=== PATIENT | male | born 1980 | race Caucasian/White ===

== ENCOUNTER 2016-08-13 17:00 | Emergency (ER) | payer SELFPAY ==
[~2016-08-13] VITALS: Ht 162.6 cm; Wt 109.5 kg
[2016-08-13 17:08] VITALS: Ht 162.6 cm; Wt 109.5 kg
[2016-08-13] MEDS ORDERED: BENZOCAINE 10% 7 GM GEL MM ONE (18:30)
[2016-08-13] MEDS ORDERED: LIDOCAINE 1%/EPI 30 ML INJ INJ STA (18:57)
[2016-08-13] MEDS ORDERED: LIDOCAINE 2%/EPI MPF (SDV) 20 ML VIAL INJ ONE (19:00)
[2016-08-13] MEDS ORDERED: KET2CR15 TOP (19:52)
[2016-08-13] MEDS ORDERED: CEPH-443 PO (19:52)
[2016-08-13] MEDS ORDERED: MUPI22OI2 TOP (19:53)
--- NOTE | 2016-08-14 19:23 | ERD ---
ER Documentation Chief Complaint Date/Time DATE: 08/14/16 TIME: 19:12 Chief Complaint FORSKIN STCUK ON BOXERS EDILIA This patient is a 36-year-old male with no significant medical history presenting to the emergency department with complaints of his foreskin stuck in the zipper of his shorts. This occurred approximately 1 hour ago. He states he was urinating and then zipped up his pants too quickly accidentally lodging the foreskin of his penis and of his upper. The patient reports moderate pain associated. He denies other injuries or symptoms currently. ROS All systems reviewed and are negative except as per history of present illness. Medications Home Meds Active Scripts Mupirocin* (Bactroban*) 2% -22 Gram Oint...g., 1 APPLIC TOP BID for 5 Days, #1 TUB SITE OF APPLICATION: Prov:ROSALIE WHALEN PA-C 08/13/16 Cephalexin* (Keflex*) 500 Mg Capsule, 500 MG PO TID for 7 Days, #21 CAP Prov:ROSALIE WHALEN PA-C 08/13/16 Ketoconazole* (Ketoconazole* 2% Cream (15gm)) 1 Applic Cr, 1 APPLIC TOP BID for 10 Days, #1 TUB Prov:ROSALIE WHALEN PA-C 08/13/16 PMhx/Soc Medical and Surgical Hx: pt denies Medical Hx, pt denies Surgical Hx Hx Alcohol Use: No Hx Substance Use: No Hx Tobacco Use: No Smoking Status: Never smoker FmHx Noncontributory for chief complaint Physical Exam Vitals Vital Signs Date Time Temp Pulse Resp B/P Pulse Ox O2 Delivery O2 Flow Rate FiO2 08/13/16 17:08 98.5 111 18 158/108 97 Physical Exam Const: Nontoxic, morbidly obese appearing male in no apparent distress. Head: Atraumatic Eyes: Normal Conjunctiva ENT: Normal External Ears, Nose and Mouth. Neck: Full range of motion..~ No meningismus. Resp: Clear to auscultation bilaterally Cardio: Regular rate and rhythm, no murmurs Exam: Scrotum: Normal Penis: There is about 1 inch of foreskin lodged in the zipper of the patient 's shorts. The glans penis has a significant amount of maceration noted with erythema. Hernia: None Testes/Epid: Non-tender w/ normal lie Discharge: None Abd: Soft, non tender, non distended. Normal bowel sounds Skin: No petechiae or rashes Back: No midline or flank tenderness Ext: No cyanosis, or edema Neur: Awake and alert Psych: Normal Mood and Affect Results 24 hrs Current Medications Medications (Trade) Dose Ordered Sig/Josh Route PRN Reason Start Time Stop Time Status Last Admin Dose Admin Benzocaine (Orajel) 1 applic ONCE ONCE MM 08/13/16 18:30 08/13/16 18:31 DC Lidocaine/ Epinephrine (Xylocaine 1%/ Epi (Pf)) 30 ml ONCE STAT INJ 08/13/16 18:57 08/13/16 18:58 DC Lidocaine/ Epinephrine (Xylocaine 2%/ Epi Mpf(Sdv)) 20 ml ONCE ONCE INJ 08/13/16 19:00 08/13/16 19:01 DC Procedures/MDM 36-year-old male presents to the emergency department with complaints of his foreskin being stuck in his upper of his shorts. This occurred 1 hour prior to arrival. Exam shows the foreskin lodged into the zipper. There is significant maceration to the glans penis which is concerning for candidal balanitis. Removal of Foreskin from pant zipper Procedure note: Risks, benefits, and alternatives discussed prior to the procedure, and the patient gave verbal consent. The area was examined and it was determined approximately 1 inch of loose foreskin was lodged into the zipper of the patient 's shorts. Very carefully using trauma gera the shorts were cut around the penis to better visualize the area of foreskin that was involved. Topical benzocaine gel was first used to lubricate the foreskin surrounding the zipper and after anesthesia was achieved, multiple attempts were made to remove the foreskin, but unsuccessful. At this point, I involved Dr. Alan Cespedes, supervising ED physician who supervised the remainder of the procedure. With assistance from Dr. Cespedes, the foreskin was pulled from the zipper successfully removing the zipper and forming an approximately 3 cm laceration to the foreskin. There was no involvement of the glans penis or other structures. Part of this procedure was also supervised by Dr. Pravin Peralta, attending ED physician. Laceration Repair by me under direct supervision by Dr. Alan Cespedes, attending ED Physician: Anesthesia: 2% lidocaine with epinephrine locally Location: Distal portion of the foreskin of the penis, there is no involvement of the glans penis. Tendon/Joint/Nerves: No injury Foreign body: None detected after copious irrigation and exploration Technique: 6x4-0, absorbable Simple Interrupted Sutures Complexity: Complex laceration repair Post Closure Length: 3 cm Patient's bleeding was easily controlled in the department and there is no indication of anemia. No evidence of compartment syndrome, neurologic injury, vascular injury, open joint, tendon laceration, or foreign body. Patient is appropriate for outpatient follow up. 48 hour wound check advised and reiterated the patient. Scar minimization instructions given. The patient tolerated the procedure well. All questions and concerns were addressed and the patient agreed with the discharge plan and diagnosis. Prescriptions were given for Keflex, mupirocin topical, and ketoconazole topical for the patient's balanitis which is incidentally found during the procedure. Departure Diagnosis: Primary Impression: Laceration Additional Impression: Balanitis Condition: Fair Patient Instructions: Laceration, All Referrals: [facility] YOU HAVE RECEIVED A MEDICAL SCREENING EXAM AND THE RESULTS INDICATE THAT YOU DO NOT HAVE A CONDITION THAT REQUIRES URGENT TREATMENT IN THE EMERGENCY DEPARTMENT. FURTHER EVALUATION AND TREATMENT OF YOUR CONDITION CAN WAIT UNTIL YOU ARE SEEN IN YOUR DOCTORS OFFICE WITHIN THE NEXT 1-2 DAYS. IT IS YOUR RESPONSIBILITY TO MAKE AN APPOINTMENT FOR FOLOW-UP CARE. IF YOU HAVE A PRIMARY DOCTOR --you should call your primary doctor and schedule an appointment IF YOU DO NOT HAVE A PRIMARY DOCTOR YOU CAN CALL OUR PHYSICIAN REFERRAL HOTLINE AT IF YOU CAN NOT AFFORD TO SEE A PHYSICIAN YOU CAN CHOSE FROM THE FOLLOWING [facility] [id number] [facility] [facility] [address] [facility] [facility] [address] [facility] [facility] [address] [facility]. [facility] [address] [facility]. [facility]. [address] Additional Instructions: Return in 48 hours for wound recheck. Follow up with your PCP within the next 1-3 days for a repeat evaluation and a possible referral to a specialist, if required. Return the the emergency department immediately if symptoms worsen or change. If you have any questions regarding medications, ask your pharmacist or us before you leave. If any adverse reactions, occur while taking your medications, discontinue the treatment and return to the emergency department immediately. If any new or worsening symptoms, uncontrolled fevers, or other unexplained symptoms occur, return to the emergency department immediately. Take your medications as directed, and complete the entire course of treatment. ROSALIE WHALEN PA-C Aug 14, 2016 19:22
== END 2016-08-13 20:43 | disposition home or self-care (01) ==
LOC: FTE 17:00
DX: S31.21XA Laceration without foreign body of penis, initial encounter (principal); N48.1 Balanitis; W22.8XXA Striking against or struck by other objects, initial encounter; Y92.9 Unspecified place or not applicable

== ENCOUNTER 2016-08-15 13:54 | Emergency (ER) | payer SELFPAY ==
[~2016-08-15] VITALS: Ht 160 cm; Wt 108.0 kg
[~2016-08-15 13:54] MED LIST: CEPH-443 PO; KET2CR15 TOP; MUPI22OI2 TOP
[2016-08-15 13:57] VITALS: Ht 160 cm; Wt 108.0 kg
[2016-08-15] MEDS ORDERED: IBUP-1542 PO (14:15)
--- NOTE | 2016-08-15 14:20 | ERD ---
ER Documentation Chief Complaint Date/Time DATE: 08/15/16 TIME: 14:18 Chief Complaint Patient here for a recheck HPI Patient is here for a 2 day wound check for a penile laceration. He has no difficulty urinating. No fevers. No new complaints. Has not noted any increased redness. ROS All systems reviewed and are negative except as per history of present illness. Medications Home Meds Active Scripts Ibuprofen* (Motrin*) 600 Mg Tab, 600 MG PO Q6, #30 TAB Prov:FRANK GOYAL PA-C 08/15/16 Mupirocin* (Bactroban*) 2% -22 Gram Oint...g., 1 APPLIC TOP BID for 5 Days, #1 TUB SITE OF APPLICATION: Prov:ROSALIE WHALEN PA-C 08/13/16 Cephalexin* (Keflex*) 500 Mg Capsule, 500 MG PO TID for 7 Days, #21 CAP Prov:ROSALIE WHALEN PA-C 08/13/16 Ketoconazole* (Ketoconazole* 2% Cream (15gm)) 1 Applic Cr, 1 APPLIC TOP BID for 10 Days, #1 TUB Prov:ROSALIE WHALEN PA-C 08/13/16 Allergies Allergies: Coded Allergies: No Known Allergy (Unverified , 08/15/16) PMhx/Soc Hx Alcohol Use: No Hx Substance Use: No Hx Tobacco Use: No FmHx Family History: No diabetes Physical Exam Vitals Vital Signs Date Time Temp Pulse Resp B/P Pulse Ox O2 Delivery O2 Flow Rate FiO2 08/15/16 13:57 98.4 93 20 146/90 98 Physical Exam Const: [] Head: Atraumatic Neck: Full range of motion..~ No meningismus. Resp: Clear to auscultation bilaterally Cardio: Regular rate and rhythm, no murmurs Skin: Penile laceration healing with sutures in place no evidence of erythema or edema, nontender Procedures/MDM Patient is here for a wound check for a penile laceration. His laceration is healing appropriately without any evidence of infection. I given prescription for Motrin for pain. Recommended this patient follow up with her primary care doctor within 48 hours or return to the emergency room for any worsening of symptoms. However this time I do believe there is suitable for outpatient management. I answered all their questions and they agreed with the plan and were discharged home. Departure Diagnosis: Primary Impression: Laceration Additional Impression: Follow-up examination for injury Condition: Stable Patient Instructions: [employer] CHARLES PA-C Aug 15, 2016 14:20
== END 2016-08-15 14:18 | disposition home or self-care (01) ==
LOC: E/R 13:54
DX: S31.21XD Laceration without foreign body of penis, subsequent encounter (principal); X58.XXXD Exposure to other specified factors, subsequent encounter
CPT/HCPCS: 99283